=== PATIENT | female | born 1990 | race Hispanic/Latino ===

== ENCOUNTER 2025-02-10 16:40 | Emergency (ER) | payer OTHER ==
[~2025-02-10] VITALS: Ht 157.5 cm; Wt 72.6 kg
[2025-02-10 17:34] VITALS: TEMP 98.4
[2025-02-10 17:40] LABS: BASOPHILS % 1.0 % (0.0-1.0); EOSINOPHILS % 11.6 % (0.0-6.0); LYMPHOCYTES % 19.5 % (18.0-39.1); MONOCYTES % 4.8 % (4.4-11.3); NEUTROPHILS % 62.6 % (38.7-80.0); RED CELL DISTRIBUTION WIDTH 13.3 % (11.7-14.4)
[2025-02-10] MEDS ORDERED: Morphine 4mg INJECTION 4 MG/ML INJ IV STA (17:58)
[2025-02-10] MEDS ORDERED: ONDANSETRON HCL INJ 2MG/ML 2ML 2 MG/ML VIAL IV STA (17:58)
[2025-02-10] MEDS: SODIUM CHLORIDE 0.9% 1000ML 1,000 ML IV STA (18:34)
[2025-02-10 18:35] LABS: LEUKOCYTE ESTERASE ,URINE NEGATIVE (NEGATIVE); PROTEIN,URINE DIPSTICK NEGATIVE (NEGATIVE); URINE UROBILINOGEN 0.2 mg/dL (0.2 - 1)
[2025-02-10 18:59] LABS: EPITHELIAL CELLS,URINE FEW /LPF; WBC,URINE (MAN) 0-5 /HPF (0-5)
[2025-02-10 19:05] LABS: EST GLOMERULAR FILTRATION RATE 122.0 ML/MIN (>=60)
[2025-02-10] MEDS ORDERED: IOPAMIDOL 370 MG/ML 100 ML INFUS..BTL INJ ONE (19:21)
[2025-02-10 21:00] VITALS: PULSE 62; RESP 17
[2025-02-10 21:07] VITALS: BP 112/61; PULSE 62; RESP 17; O2SAT 100
== END 2025-02-10 21:03 | disposition home or self-care (01) ==
LOC: ER 17:15
DX: R10.11 Right upper quadrant pain (principal)
CPT/HCPCS: 36415; 71250; 74176; 80053; 81001; 82550; 83690; 84484; 84702; 85025; 85379; 99284; J7030; J2270; J2405; Q9967